=== PATIENT | male | born 1950 | race Caucasian/White ===

== ENCOUNTER → 2018-09-20 | Outpatient (CLI) | payer MEDICARE | END | disposition home or self-care (01) | LOC: RAD 07:25 | PROVIDERS: ATTEND Nurse Practitioner Family | DX: I70.0 Atherosclerosis of aorta (principal); F17.211 Nicotine dependence, cigarettes, in remission | CPT/HCPCS: 76706 ==

== ENCOUNTER 2020-05-17 08:17 | Day surgery (SDC) | payer MEDICARE ==
[~2020-05-17] VITALS: Ht 191.8 cm; Wt 110.8 kg
[~2020-05-17 08:17] MED LIST: ACETAMINOPHEN 325 MG TABLET PO PRN; EPHEDRINE 50 MG/ML, 1ML IVPush PRN; FENTANYL PF 100 MCG/2ML IV PRN; HYDROmorphone 1 MG/ML, 1ML INJ IVPush PRN; KETOROLAC 30 MG/1 ML IVPush PRN; LABETALOL 5MG/ML, 20ML IV PRN; LORazepam 2 MG/ML, 1ML IVPush PRN; MEPERIDINE/PF 25MG/0.5ML IVPush PRN; OXYcodone 5 MG/5 ML ORAL.SOL UDC PO PRN; PROMETHAZINE 12.5 MG SUPP PR PRN; hydrALAzine 20 MG/ML, 1ML IV PRN
[2020-05-17] MEDS ORDERED: PLEASE ENTER ALLERGIES MC SCH (08:30)
[2020-05-17] MEDS ORDERED: LACTATED RINGERS 1,000 ML IV SCH (08:38)
[2020-05-17 08:42] VITALS: BP 162/90
[2020-05-17] MEDS ORDERED: FLUT15.845 TP (09:00)
[2020-05-17] MEDS ORDERED: ATOR40TA78 PO (09:00)
[2020-05-17] MEDS ORDERED: HYDR25TA6 PO (09:00)
[2020-05-17] MEDS ORDERED: METF500T17 PO (09:00)
[2020-05-17] MEDS ORDERED: LOSA100T14 PO (09:00)
[2020-05-17] MEDS ORDERED: PRAZ2CAP2 PO (09:00)
[2020-05-17] MEDS ORDERED: CHOL10003 PO (09:00)
[2020-05-17] MEDS ORDERED: METOPROLOL PO (09:00)
[2020-05-17] MEDS ORDERED: [UNRECOGNIZED DRUG - OTHER] PO (09:00)
[2020-05-17] MEDS ORDERED: CHLORHEXIDINE 15 ML UDC MM ONE (09:00)
[2020-05-17] MEDS ORDERED: WARF1TAB9 PO (09:00)
[2020-05-17] MEDS ORDERED: CHLORHEXIDINE 15 ML UDC ONE (09:01)
[2020-05-17 09:19] LABS: ALANINE AMINOTRANSFERASE 17 U/L (12-78); ALBUMIN 3.5 g/dL (3.4-5.0); ANION GAP 5 mmol/L (5-15); CALCIUM 8.9 mg/dL (8.5-10.1); CHLORIDE 110 mmol/L (98-107); CREATININE 1.24 mg/dL (0.7-1.3)
[2020-05-17 09:21] LABS: ALKALINE PHOSPHATASE 80 U/L (45-117); BILIRUBIN,TOTAL 0.8 mg/dL (0.2-1.0)
[2020-05-17 09:28] LABS: INTERNATIONAL NORMALIZED RATIO 1.26 (0.93-1.1)
[2020-05-17] MEDS ORDERED: FENTANYL PF 250 MCG/5ML ONE (10:17)
[2020-05-17] MEDS ORDERED: PROPOFOL 50 ML ONE ×3 (10:18→11:15)
[2020-05-17] MEDS ORDERED: LIDOCAINE 1%-EPI 1:100K, 20ML ONE (10:24)
[2020-05-17] MEDS ORDERED: ROCURONIUM 10 MG/ML,10ML ONE (10:29)
[2020-05-17] MEDS ORDERED: NEOSTIGMINE 1 MG/ML, 10ML ONE (10:29)
[2020-05-17] MEDS ORDERED: GLYCOPYRROLATE 0.2MG/1ML, 5ML ONE (10:29)
[2020-05-17] MEDS ORDERED: DEXAMETHASONE 4 MG/ML, 1ML ONE (11:08)
[2020-05-17] MEDS ORDERED: ONDANSETRON 2MG/ML, 2ML ONE (11:08)
[2020-05-17] MEDS ORDERED: CEFAZOLIN 1,000 MG ONE (11:08)
[2020-05-17] MEDS ORDERED: SUCCINYLCHOLINE 20 MG/ML, 10ML ONE (11:08)
[2020-05-17] MEDS ORDERED: PROPOFOL 10 MG/ML, 20ML ONE (11:08)
[2020-05-17] MEDS ORDERED: FENTANYL PF 100 MCG/2ML ONE ×2 (11:13→11:15)
[2020-05-17] MEDS ORDERED: MEPERIDINE/PF 25MG/ML,1ML ONE (12:21)
== END 2020-05-17 14:25 | disposition home or self-care (01) ==
LOC: OUT 08:17
PROVIDERS: ATTEND Otolaryngology
DX: K11.5 Sialolithiasis (principal); Z20.828 Contact with and (suspected) exposure to other viral communicable diseases; I10 Essential (primary) hypertension; I48.91 Unspecified atrial fibrillation; E11.9 Type 2 diabetes mellitus without complications; Z79.01 Long term (current) use of anticoagulants; Z79.899 Other long term (current) drug therapy
CPT/HCPCS: 36415; 42440; 80053; 82962; 85610; 85730; 87635; 88305; 93005; C1760; J0330; J0690; J1100; J2175; J2405; J2704; J2710; J3010; J3490; J7120

== ENCOUNTER 2020-11-23 09:43 | Outpatient (CLI) | payer MEDICARE ==
[~2020-11-23 09:43] MED LIST changes: -ACETAMINOPHEN 325 MG TABLET PO PRN; +ATOR40TA78 PO; +CHOL10003 PO; -EPHEDRINE 50 MG/ML, 1ML IVPush PRN; -FENTANYL PF 100 MCG/2ML IV PRN; +FLUT15.845 TP; +HYDR25TA6 PO; -HYDROmorphone 1 MG/ML, 1ML INJ IVPush PRN; -KETOROLAC 30 MG/1 ML IVPush PRN; -LABETALOL 5MG/ML, 20ML IV PRN; -LORazepam 2 MG/ML, 1ML IVPush PRN; +LOSA100T14 PO; -MEPERIDINE/PF 25MG/0.5ML IVPush PRN; +METF500T17 PO; +METOPROLOL PO; -OXYcodone 5 MG/5 ML ORAL.SOL UDC PO PRN; +PRAZ2CAP2 PO; -PROMETHAZINE 12.5 MG SUPP PR PRN; +WARF1TAB9 PO; +[UNRECOGNIZED DRUG - OTHER] PO; -hydrALAzine 20 MG/ML, 1ML IV PRN
== END 2020-11-23 23:59 | disposition home or self-care (01) ==
LOC: CVU 09:43
PROVIDERS: ATTEND Internal Medicine Cardiovascular Disease
DX: I08.3 Combined rheumatic disorders of mitral, aortic and tricuspid valves (principal); I65.23 Occlusion and stenosis of bilateral carotid arteries; I10 Essential (primary) hypertension; E78.2 Mixed hyperlipidemia; I48.0 Paroxysmal atrial fibrillation; I25.9 Chronic ischemic heart disease, unspecified
CPT/HCPCS: 78452; 93017; 93306; 93880; A9502

== ENCOUNTER 2020-11-23 12:05 | Outpatient (CLI) | payer MEDICARE | END 2020-11-23 23:59 | disposition home or self-care (01) | LOC: CFH 12:05 | PROVIDERS: ATTEND Nurse Practitioner Family | DX: Z02.9 Encounter for administrative examinations, unspecified (principal) ==